=== PATIENT | female | born 2000 | race American Indian/Alaskan Native ===

== ENCOUNTER 2019-01-03 12:36 | Emergency (ER) | payer OTHER ==
[2019-01-03] MEDS ORDERED: Prochlorperazine 5 MG Tab PO ONE (12:37)
--- NOTE | 2019-01-03 12:48 | EDM.PDOC ---
ED HPI GENERAL MEDICAL PROBLEM - General Stated Complaint: HIT HEAD Time Seen by Provider: 01/03/19 12:48 Source of Information: Reports: Patient History Limitations: Reports: No Limitations - History of Present Illness INITIAL COMMENTS - FREE TEXT/NARRATIVE: 18-year-old female who was walking to the gym at [employer] while at work and slipped on ice falling backwards and hitting her head on the pavement. This occurred approximately 12:15 PM today. She did have a brief loss of consciousness and she has felt dazed since the injury occurred. She also has pain in her posterior neck. She rates the pain as a 6/10. It is a sharp and sore pain. The pain is worse when she is trying to lie down. It is better when she is sitting up. She has no back pain. She has no arm or leg pains. She had no antecedent problems. Her vision is normal but she does have some photophobia. There are no open wounds. There are no other associated signs or symptoms. There are no other modifying factors. Onset: Today (12:15 PM) Duration: Constant Location: Reports: Head, Neck Quality: Reports: Sharp, Other (Sore) Severity: Moderate Improves with: Reports: Rest Worsens with: Reports: Other (Palpation), Movement Context: Reports: Trauma Associated Symptoms: Reports: Headaches, Other (Dazed. 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 Social & Family History - Tobacco Use Smoking Status *Q: Unknown Ever Smoked (Nonsmoker) - Alcohol Use Alcohol Use History: No - Living Situation & Occupation Occupation: Employed ([employer] ED ROS GENERAL - Review of Systems Review Of Systems: See Below Constitutional: Reports: No Symptoms HEENT: Reports: Other (Photophobia) Respiratory: Reports: No Symptoms Cardiovascular: Reports: No Symptoms Endocrine: Reports: No Symptoms GI/Abdominal: Reports: No Symptoms : Reports: No Symptoms (She denies any possibility of .) Musculoskeletal: Reports: Neck Pain Skin: Reports: No Symptoms (No open wounds.) Neurological: Reports: Headache (Complains of right frontal headache), Other ( Feels dazed.) Hematologic/Lymphatic: Reports: No Symptoms Immunologic: Reports: No Symptoms ED EXAM, HEAD INJURY - Physical Exam Exam: See Below General Appearance: Alert, WD/WN, Moderate Distress Head: Normocephalic, Scalp Tenderness (Occipital in the midline) Nexus Criteria: Posterior, Midline Cervical Tenderness, Painful Distraction Injuries Eyes: Bilateral Eye: EOMI, Normal Inspection, PERRL, Other (Photophobias present ) Ears: Normal External Exam, Hearing Grossly Normal Nose: Normal Inspection, Normal Mucousa, No Blood Throat/Mouth: Normal Inspection, Normal Lips, Normal Oropharynx, Normal Voice, No Airway Compromise Neck: Normal Inspection, Painful Range of Motion, Tender Midline, Other (No crepitus or bony deformity.) Respiratory: No Respiratory Distress Cardiovascular: Normal Peripheral Pulses, Regular Rate, Rhythm, No Murmur GI/Abdominal Exam: Normal Bowel Sounds, Soft, Non-Tender, No Mass Back Exam: Normal Inspection Extremities: Normal Inspection, Normal Range of Motion, Non-Tender, No Pedal Edema, Normal Capillary Refill Neurologic: nail sticker II-XII nml As Tested, No Motor/Sensory Deficits, Alert, Normal Mood/Affect, Oriented x 3 Skin: Normal Color, Warm/Dry - [place] Coma Score Best Eye Response ([place]): (4) Open Spontaneously Best Verbal Response ([place]): (5) Oriented Best Motor Response ([place]): (6) Obeys Commands [place] Total: 15 Course - Vital Signs Last Recorded V/S: Last Vital Signs Temp 36.7 C 01/03/19 12:40 Pulse 74 01/03/19 12:40 Resp 18 01/03/19 12:40 BP 131/92 H 01/03/19 12:40 Pulse Ox 98 01/03/19 12:40 - Orders/Labs/Meds Orders: Active Orders 24 hr Category Date Time Status Cervical Spine wo Cont [CT] Stat Exams 01/03/19 13:10 Ordered Head wo Cont [CT] Stat Exams 01/03/19 13:10 Taken Meds: Medications Discontinued Medications Generic Name Dose Route Start Last Admin Trade Name Freq PRN Reason Stop Dose Admin Acetaminophen 1,000 mg 01/03/19 13:45 01/03/19 13:53 Tylenol Extra Strength PO 01/03/19 13:46 1,000 mg ONETIME ONE Administration Diphenhydramine HCl 25 mg 01/03/19 14:04 01/03/19 14:12 Benadryl IM 01/03/19 14:05 25 mg ONETIME ONE Administration Ondansetron HCl 4 mg 01/03/19 13:45 01/03/19 13:54 Zofran Odt PO 01/03/19 13:46 4 mg ONETIME ONE Administration Prochlorperazine Edisylate 10 mg 01/03/19 14:03 01/03/19 14:13 Compazine IM 01/03/19 14:04 10 mg ONETIME ONE Administration - Radiology Interpretation Free Text/Narrative:: CT scan of head shows no evidence of trauma. There is a 2.5 cm focus CSF density relying the right frontal lobe area that is consistent with an arachnoid cyst. This was per the radiologist. CT scan of cervical spine showed no fracture or subluxation per the radiologist. - Re-Assessments/Exams Free Text/Narrative Re-Assessment/Exam: 01/03/19 13:43: Patient with nausea and a few dry heavings. My wet read of the CT scan she has no fracture or bleed. I am awaiting reports from the radiologist. Patient remains awake, alert and appropriate. She is neurologically and vitally stable. I will give the patient Tylenol 1000 mg and Zofran 4 mg ODT by mouth. 01/03/19 14:26: The patient's CT scans are negative for bleeding or fracture. She continues to have some nausea and dry heaving. I have just had the nurses give the patient Compazine and Benadryl IM and we will continue to watch the patient for now to see if this will improve her nausea symptoms and her headache symptoms. She remains awake, alert and neurologically stable. 01/03/19 15:38: Patient feels much better. No more nausea. No more dizziness. Headache is improved. No more vomiting. She is sitting up and the photophobia is even almost gone as well. Precautions and reasons for return to the emergency department were discussed with the patient and her friend and the patient will be discharged. I will prescribe the patient Compazine for nausea as needed. Departure - Departure Time of Disposition: 15:42 Disposition: Home, Self-Care 01 Condition: Good Clinical Impression: Concussion with less than 1 hour loss of consciousness Fall from slipping on ice Qualifiers: Encounter type: initial encounter Qualified Code(s): W00.9XXA - Unspecified fall due to ice and snow, initial encounter Neck strain Qualifiers: Encounter type: initial encounter Qualified Code(s): S16.1XXA - Strain of muscle, fascia and tendon at neck level, initial encounter Head contusion Qualifiers: Encounter type: initial encounter Contusion of head detail: other part of head Qualified Code(s): S00.83XA - Contusion of other part of head, initial encounter - Discharge Information Prescriptions: Prochlorperazine Maleate [Compazine] 1 - 2 tab PO Q6H PRN #14 tablet PRN Reason: Nausea/Vomiting Instructions: Head Injury, Adult, [id number], Cervical Sprain, [id number], Concussion, Adult, [id number] Referrals: PCP,None [Primary Care Provider] - Forms: ED Return to Work/School Form Additional Instructions: The CT scans of your head and neck showed no fractures or bleeding. You have a concussion from your fall. He also have a strain or sprain to your neck. No work until 01/05/2019. No contact sports or strenuous activity for 2 weeks. You may take ibuprofen and Tylenol as needed for pain. Medication as prescribed for nausea or vomiting (Compazine 5 mg). Follow-up with your primary provider if you are having persisting problems with headache, nausea or dizziness. Back to the emergency department for marked increase in pain, unrelenting vomiting, localized area of weakness or numbness or any other concerning sign or symptom. - My Orders Last 24 Hours: My Active Orders 01/03/19 13:10 Cervical Spine wo Cont [CT] Stat Head wo Cont [CT] Stat - Assessment/Plan Last 24 Hours: My Active Orders 01/03/19 13:10 Cervical Spine wo Cont [CT] Stat Head wo Cont [CT] Stat
[2019-01-03] MEDS: Acetaminophen 500 MG Tab PO ONE (13:53)
[2019-01-03] MEDS: Ondansetron 4 MG Tab.DIS PO ONE (13:54)
[2019-01-03] MEDS: diphenhydrAMINE 50 MG/ML SDV IM ONE (14:12)
[2019-01-03] MEDS: Prochlorperazine 10 MG/2 ML SDV IM ONE (14:13)
== END 2019-01-03 15:52 | disposition home or self-care (01) ==
LOC: FB.ED 12:36
DX: S06.0X9A Concussion with loss of consciousness of unspecified duration, initial encounter (principal); S16.1XXA Strain of muscle, fascia and tendon at neck level, initial encounter; S00.83XA Contusion of other part of head, initial encounter; W00.0XXA Fall on same level due to ice and snow, initial encounter; Y99.0 Civilian activity done for income or pay
CPT/HCPCS: 70450; 72125; 96372; 99284-25; A9270-GY; J0780; J1200; Q0164